=== PATIENT | female | born 2000 | race Hispanic/Latino ===

== ENCOUNTER 2024-07-10 23:30 | Emergency (ER) | payer OTHER ==
[~2024-07-10] VITALS: Ht 152.4 cm; Wt 72.0 kg
[~2024-07-10 23:30] MED LIST: NO HOME MEDS
[2024-07-10 23:40] VITALS: BP 103/68
[2024-07-10 23:45] VITALS: BP 114/67
[2024-07-10 23:50] VITALS: BP 114/67
== END 2024-07-10 23:50 | disposition home or self-care (01) | DRG 951 ==
LOC: ED 23:30
DX: Z02.89 Encounter for other administrative examinations (principal)